=== PATIENT | male | born 1935 | race Caucasian/White ===

== ENCOUNTER 2016-11-12 08:36 | Outpatient (CLI) | payer OTHER, MEDICARE | END 2016-11-12 08:37 | disposition home or self-care (01) | DX: E07.9 Disorder of thyroid, unspecified (principal); E78.5 Hyperlipidemia, unspecified; R73.01 Impaired fasting glucose ==

== ENCOUNTER 2016-11-20 18:11 | Emergency (ER) | payer OTHER, MEDICARE ==
--- NOTE | 2016-11-20 19:09 | ED Physician Documentation ---
History of Present Illness - Stated complaint Stated Complaint: DIZZY - Chief complaint Chief Complaint: Neuro - History obtained from History obtained from: Patient, Family - History of Present Illness Timing: Other (This is a 81-year-old gentleman who had an PA with a single stent to the right coronary 10 years ago. The PA presenting complaint was chest discomfort, it was preceded 22 days earlier by a dizzy episode. He had a similar dizzy episode yesterday morning, a lightheadedness that lasted about 20 minutes and now is gone. There is no associated chest pain, chest discomfort, shortness of breath, nausea, sweats, or shortness of breath. He feels absolutely fine today.) Review of Systems Constitutional: denies: Fever, Chills Nose: denies: Rhinorrhea / runny nose, Congestion Cardiac: denies: Chest pain / pressure, Palpitations Respiratory: denies: Dyspnea, Cough GI: denies: Abdominal Pain, Nausea, Vomiting PD PAST MEDICAL HISTORY - Past Medical History Cardiovascular: PA - Present Medications Home Medications: Ambulatory Orders Medication Instructions Recorded Confirmed Albuterol Sulfate [Albuterol 2 puffs IH Q4HR PRN #1 hfa.aer.ad 09/05/14 Sulfate Hfa] Atorvastatin [Lipitor] 70 mg PO DAILY 09/05/14 09/05/14 Azithromycin [Zithromax] 250 mg PO DAILY #6 tablet 09/05/14 Levothyroxine [Synthroid] 225 mcg PO DAILY 09/05/14 09/05/14 Ondansetron [Zofran] 4 mg PO Q6H PRN #10 tablet 09/05/14 predniSONE [Deltasone] 40 mg PO DAILY 5 Days 09/05/14 - Allergies Allergies/Adverse Reactions: Allergies Allergy/AdvReac Type Severity Reaction Status Date / Time No Known Drug Allergies Allergy Verified 11/20/16 18:16 - Social History Does the pt smoke?: No Smoking Status: Never smoker Does the pt drink ETOH?: No Does the pt have substance abuse?: No PD ED PE NORMAL - Vitals Vital signs reviewed: Yes - General General: Alert and oriented X 3, No acute distress - Neck Neck: Supple, no meningeal sign, No bony TTP - Cardiac Cardiac: RRR, No murmur - Respiratory Respiratory: No respiratory distress, Clear bilaterally - Abdomen Abdomen: Non tender - Extremities Extremities: No edema, No calf tenderness / cord - Neuro Neuro: Alert and oriented X 3, Normal speech - Psych Psych: Normal mood, Normal affect Results - Vitals Vitals: Vital Signs - 24 hr 11/20/16 11/20/16 18:12 19:46 Temperature 36.5 C Heart Rate 67 62 Respiratory 16 18 Rate Blood Pressure 128/75 135/82 H O2 Saturation 98 100 Oxygen O2 Source Room air - EKG (time done) 1824 Rate: Rate (enter#) (67) Rhythm: NSR [place]: Normal Intervals: Wide QRS (IVCD) QRS: Normal Ischemia: Non specific changes. No: ST elevation c/w ischemia Computer interpretation: Agree with computer - Labs Labs: Laboratory Tests 11/20/16 11/20/16 11/20/16 19:13 19:13 19:13 WBC 7.5 RBC 4.34 L Hgb 13.9 L Hct 41.9 L MCV 96.5 H MCH 31.9 H MCHC 33.1 RDW 14.3 Plt Count 212 MPV 8.0 Neut # 4.3 Lymph # 2.2 [place] # 0.7 Eos # 0.3 Baso # 0.1 Absolute Nucleated RBC 0.01 Nucleated RBCs 0.1 Sodium 140 Potassium 4.0 Chloride 108 Carbon Dioxide 25 Anion Gap 7.0 BUN 22 H Creatinine 0.8 Estimated GFR (MDRD) 93 Glucose 84 Calcium 9.5 Total Bilirubin 0.3 AST 27 ALT 25 Alkaline Phosphatase 63 Troponin I < 0.04 Total Protein 6.8 Albumin 4.3 Globulin 2.5 Albumin/Globulin Ratio 1.7 Lipase 20 L PD MEDICAL DECISION MAKING - ED course ED course: This 81-year-old gentleman with history of PA he had an episode of dizziness yesterday, 36 hours ago, that was reminiscent of a symptom he had 22 days before prior PA. He has no anginal or anginal equivalent symptoms now or recently. His workup here is without evidence of acute ischemia. He is advised to followup for semiurgent stress testing. Departure - Departure Disposition: 01 Home, Self Care Clinical Impression: Dizziness Condition: Good Record reviewed to determine appropriate education?: Yes Instructions: ED Dizziness [facility] Comments: Followup with your primary care physician or academic coordinator tomorrow and discuss semi-urgent stress testing. Return if worse or if you develop any chest symptoms. Your blood pressure was elevated today on check in to the emergency department. This does not mean that you have hypertension, it is a common phenomenon to check into the emergency department and have elevated blood pressure. I recommend that you see your primary care physician within the week to have it rechecked when you're feeling better.
[2016-11-20 19:26] LABS: BASOPHILS # (AUTO) 0.1 10^3/uL (0.0-0.1); EOSINOPHILS # (AUTO) 0.3 10^3/uL (0.0-0.7); EOSINOPHILS % (AUTO) 3.5 %; HCT - HEMATOCRIT 41.9 % (42.0-52.0); HGB - HEMOGLOBIN 13.9 g/dL (14.0-18.0); LYMPHOCYTES # (AUTO) 2.2 10^3/uL (1.5-3.5); LYMPHOCYTES % (AUTO) 29.3 %; MEAN CORPUSCULAR HEMOGLOBIN 31.9 pg (27.0-31.0); MEAN CORPUSCULAR HGB CONC 33.1 g/dL (32.0-36.0); MEAN CORPUSCULAR VOLUME 96.5 fL (80.0-94.0); MONOCYTES # (AUTO) 0.7 10^3/uL (0.0-1.0); MONOCYTES % (AUTO) 9.1 %; NEUTROPHILS # (AUTO) 4.3 10^3/uL (1.5-6.6); NEUTROPHILS % (AUTO) 57.1 %; NUCLEATED RED BLOOD CELLS AUTO 0.1 /100WBC; RED BLOOD COUNT 4.34 10^6/uL (4.70-6.10); RED CELL DISTRIBUTION WIDTH 14.3 % (12.0-15.0); UNCORRECTED WHITE BLOOD COUNT 7.5 x10^3/uL; WHITE BLOOD COUNT 7.5 x10^3/uL (4.8-10.8)
[2016-11-20 19:42] LABS: ALBUMIN/GLOBULIN RATIO 1.7 (1.0-2.2); BILIRUBIN,TOTAL 0.3 mg/dL (0.2-1.0); CALCIUM 9.5 mg/dL (8.5-10.3); CREATININE 0.8 mg/dL (0.6-1.2); TOTAL PROTEIN 6.8 g/dL (6.7-8.2)
[2016-11-20 19:47] VITALS: BP 135/82
== END 2016-11-20 20:05 | disposition home or self-care (01) ==
LOC: ED 18:11
DX: R42 Dizziness and giddiness (principal); R03.0 Elevated blood-pressure reading, without diagnosis of hypertension; I25.2 Old myocardial infarction
CPT/HCPCS: 36415; 80053; 83690; 84484; 85025; 93005; 93010; 99283

== ENCOUNTER 2016-12-15 11:09 | Outpatient (CLI) | payer OTHER, MEDICARE | END 2016-12-15 11:10 | disposition home or self-care (01) | LOC: DI 11:09 | PROVIDERS: ATTEND Physician Assistant | DX: R42 Dizziness and giddiness (principal); I51.7 Cardiomegaly | CPT/HCPCS: 93306 ==

== ENCOUNTER 2016-12-27 17:00 | Outpatient (CLI) | payer OTHER, MEDICARE ==
--- NOTE | 2016-12-28 06:15 | Ultrasound Report ---
EXAM: CAROTID DOPPLER ULTRASOUND EXAM DATE: 12/27/2016 06:56 PM. CLINICAL HISTORY: Dizziness and giddiness. COMPARISON: None. TECHNIQUE: Real-time sonographic vascular imaging was performed by the director of admissions through the [employer] arterial system with a linear transducer utilizing color-flow, Doppler flow and spectral analysis. Multiple route sales representative static images were saved for review. FINDINGS: There is plaquing at the carotid bifurcations bilaterally, left greater than right. No significant st enosis is seen. Ectasia is seen in the mid left common carotid artery. Antegrade flow is seen in both vertebral arteries. Right: RCCA Prox: PSV 81 cm/sec. RCCA Dist: PSV 68 cm/sec, EDV 20 cm/sec. RECA: PSV 63 cm/sec. R Bulb: PSV 46 cm/sec, EDV 12 cm/sec, ICA/CCA ratio 0.67. MARYSE Prox: PSV 64 cm/sec, EDV 15 cm/sec, ICA/CCA ratio 0.94. MARYSE Mid: PSV 66 cm/sec, EDV 28 cm/sec, ICA/CCA ratio 0.97. MARYSE Dist: PSV 69 cm/sec, EDV 18 cm/sec, ICA/CCA ratio 1.01. RVA: PSV 22 cm/sec. RVA flow direction: Antegrade. Left: LCCA Prox: PSV 97 cm/sec. LCCA Dist: PSV 174 cm/sec, EDV 27 cm/sec. LECA: PSV 93 cm/sec. L Bulb: PSV 67 cm/sec, EDV 17 cm/sec, ICA/CCA ratio 0.38. LICA Prox: PSV 46 cm/sec, EDV 20 cm/sec, ICA/CCA ratio 0.26. LICA Mid: PSV 60 cm/sec, EDV 27 cm/sec, ICA/CCA ratio 0.34. LICA Dist: PSV 80 cm/sec, EDV 31 cm/sec, ICA/CCA ratio 0.45. LVA: PSV 30 cm/sec. LVA flow direction: Antegrade. Other: None. IMPRESSION: 1. Bilateral carotid plaquing with no significant stenosis. 2. Antegrade flow in both vertebral arteries. Validated velocity measurements with angiographic measurements and velocity criteria are extrapolated from diameter data as defined by the Society of Radiologists in Ultrasound Consensus Conference Radi ology 2003; 229;340-346. [facility] Referring Provider Line: [phone] SITE ID: [id number]
== END 2016-12-27 17:01 | disposition home or self-care (01) ==
LOC: DI 17:00
PROVIDERS: ATTEND Physician Assistant
DX: R42 Dizziness and giddiness (principal)
CPT/HCPCS: 93880

== ENCOUNTER 2017-01-09 14:41 | Outpatient (CLI) | payer OTHER, MEDICARE ==
[2017-01-09 17:58] LABS: BASOPHILS % (AUTO) 0.4 %; EOSINOPHILS # (AUTO) 0.3 10^3/uL (0.0-0.7); EOSINOPHILS % (AUTO) 3.6 %; HGB - HEMOGLOBIN 14.1 g/dL (14.0-18.0); LYMPHOCYTES # (AUTO) 1.3 10^3/uL (1.5-3.5); MEAN CORPUSCULAR HEMOGLOBIN 32.8 pg (27.0-31.0); MEAN CORPUSCULAR HGB CONC 33.6 g/dL (32.0-36.0); MEAN CORPUSCULAR VOLUME 97.7 fL (80.0-94.0); MEAN PLATELET VOLUME 8.5 fL (7.4-11.4); MONOCYTES % (AUTO) 10.7 %; NEUTROPHILS # (AUTO) 6.8 10^3/uL (1.5-6.6); NEUTROPHILS % (AUTO) 71.3 %; RED CELL DISTRIBUTION WIDTH 13.8 % (12.0-15.0); UNCORRECTED WHITE BLOOD COUNT 9.5 x10^3/uL; WHITE BLOOD COUNT 9.5 x10^3/uL (4.8-10.8)
[2017-01-09 18:10] LABS: ALBUMIN/GLOBULIN RATIO 1.4 (1.0-2.2); BILIRUBIN,TOTAL 0.6 mg/dL (0.2-1.0); CALCIUM 9.2 mg/dL (8.5-10.3); POTASSIUM 3.9 mmol/L (3.5-5.0); TOTAL PROTEIN 6.9 g/dL (6.7-8.2)
[2017-01-09 18:21] LABS: MONO NEG QC NEGATIVE (Negative); MONO POS QC POSITIVE (Positive)
== END 2017-01-09 14:42 | disposition home or self-care (01) ==
LOC: LAB.F 14:41
PROVIDERS: ATTEND Physician Assistant
DX: R05 Cough (principal)
CPT/HCPCS: 36415; 80053; 85025; 86308

== ENCOUNTER 2017-01-09 15:52 | Outpatient (CLI) | payer OTHER, MEDICARE ==
--- NOTE | 2017-01-10 09:01 | XRAY Report ---
TWO-VIEW CHEST: 01/09/2017 CLINICAL INDICATION: Cough. COMPARISON: 09/05/2014 FINDINGS: Frontal and lateral views of the chest demonstrate a normal cardiac silhouette. The lungs are clear. Previous interstitial opacities have resolved. No effusion or pneumothorax is present. IMPRESSION: NORMAL CHEST. JOB #: [id number] EXT JOB #:[id number]
== END 2017-01-09 15:53 | disposition home or self-care (01) ==
LOC: DI.S 15:52
PROVIDERS: ATTEND Physician Assistant
DX: R05 Cough (principal)
CPT/HCPCS: 36415; 71020; 80053; 85025; 86308

== ENCOUNTER 2018-01-28 08:00 | Outpatient (CLI) | payer OTHER, MEDICARE ==
[2018-01-28 18:06] LABS: ALBUMIN 4.3 g/dL (3.2-5.5); ALBUMIN/GLOBULIN RATIO 1.5 (1.0-2.2); ALKALINE PHOSPHATASE 67 IU/L (42-121); ALT ALANINE AMINOTRANSFERASE 28 IU/L (10-60); AST ASPARTATE AMINOTRANSFERASE 33 IU/L (10-42); BILIRUBIN,TOTAL 0.8 mg/dL (0.2-1.0); BUN - BLOOD UREA NITROGEN 18 mg/dL (6-20); CALCIUM 9.4 mg/dL (8.5-10.3); CARBON DIOXIDE - CO2 26 mmol/L (21-32); CHLORIDE 104 mmol/L (101-111); CHOL/HDL RATIO 2.7 (<5.0); CHOLESTEROL 182 mg/dL; GFR - MDRD 72 (>89); GLUCOSE 72 mg/dL (70-100); HDL CHOLESTEROL 67 mg/dL; LDL CHOLESTEROL,CALCULATED 77 mg/dL; LDL/HDL RATIO 1.1 (<3.6); SODIUM 136 mmol/L (135-145); TOTAL PROTEIN 7.2 g/dL (6.7-8.2); VLDL CHOLESTEROL 38 mg/dL
[2018-01-28 18:19] LABS: TOTAL T3 0.52 ng/mL (0.87-1.78)
[2018-01-28 18:50] LABS: THYROID STIMULATING HORMONE 94.05 uIU/mL (0.34-5.60)
[2018-01-28 18:54] LABS: FREE T4 (FREE THYROXINE) < 0.25 ng/dL (0.58-1.64)
== END 2018-01-28 08:01 | disposition home or self-care (01) ==
LOC: LAB.F 08:00
PROVIDERS: ATTEND Physician Assistant
DX: E78.5 Hyperlipidemia, unspecified (principal); I25.10 Atherosclerotic heart disease of native coronary artery without angina pectoris; E07.9 Disorder of thyroid, unspecified
CPT/HCPCS: 36415; 80053; 80061; 83721; 84439; 84443; 84480; 84481; 84482

== ENCOUNTER 2018-01-31 14:55 | Outpatient (CLI) | payer OTHER, MEDICARE | END 2018-01-31 14:56 | disposition home or self-care (01) | LOC: LAB.F 14:55 | PROVIDERS: ATTEND Physician Assistant | DX: E78.5 Hyperlipidemia, unspecified (principal); I25.10 Atherosclerotic heart disease of native coronary artery without angina pectoris; E07.9 Disorder of thyroid, unspecified | CPT/HCPCS: 36415; 84482 ==

== ENCOUNTER 2018-08-12 16:34 | Emergency (ER) | payer MEDICARE, OTHER ==
--- NOTE | 2018-08-12 17:55 | CT Report ---
Reason: fall, head injury Procedure Date: 08/12/2018 Accession Number: [id number] / [id number] Procedure: CT - Head W/O CPT Code: FULL RESULT: EXAM: CT HEAD EXAM DATE: 08/12/2018 05:28 PM. CLINICAL HISTORY: Fall, head injury. COMPARISON: None. TECHNIQUE: Multiaxial CT images were obtained from the foramen magnum to the vertex. Reformats: Sagittal and coronal. IV contrast: None. In accordance with CT protocol optimization, one or more of the following dose reduction techniques were utilized for this exam: automated exposure control, adjustment of mA and/or KV based on patient size, or use of iterative reconstructive technique. FINDINGS: Parenchyma: No intraparenchymal hemorrhage. No evidence of mass, midline shift, or CT findings of infarction. Tatum-white differentiation is distinct. Extraaxial Spaces: Normal for age. No subdural or epidural collections identified. Ventricles: Normal in size and position. Sinuses and Orbits: Imaged paranasal sinuses, orbits, and mastoids show no significant abnormality. Bones: No evidence of fracture or calvarial defect. Other: None. IMPRESSION: No acute intracranial abnormality. [facility]
--- NOTE | 2018-08-12 18:04 | ED Physician Documentation ---
PD HPI HEAD INJURY - Stated complaint Stated Complaint: GLF/HD PX/BLURRY VISION - Chief complaint Chief Complaint: Ext Problem - History obtained from History obtained from: Patient - History of Present Illness Mechanism of head injury: Fell Where head injury occurred: Other (slipped on ice and fell backward, striking occiput. [place] dazed for few moments, without LOC. Having some blurred vision few minutes, and doubled vision. Has consistent diplopia since the fall. Some occipital headache.) Timing - onset: How many hours ago (1), Today Location of injury: Back Quality of pain: Aching, Dull Associated symptoms: No: LOC, AMS, Nausea / vomiting Symptoms worsen with: Palpation Contributing factors: No: Anticoagulated, Intoxicated Similar symptoms before: Has not had sx before Recently seen: Not recently seen Review of Systems Constitutional: denies: Fever Eyes: denies: Loss of vision (has doubled vision), Photophobia Nose: denies: Rhinorrhea / runny nose, Congestion Throat: denies: Sore throat Respiratory: denies: Cough GI: denies: Nausea, Vomiting Musculoskeletal: denies: Neck pain, Back pain Neurologic: denies: Focal weakness, Numbness PD PAST MEDICAL HISTORY - Past Medical History Past Medical History: Yes Cardiovascular: High cholesterol, CT Endocrine/Autoimmune: HyPOthyroidism Other Past Medical History: cancer - Past Surgical History Past Surgical History: Yes Cardiovascular: Coronary stent - Present Medications Home Medications: Ambulatory Orders Medication Instructions Recorded Confirmed Atorvastatin [Lipitor] 80 mg PO DAILY 09/05/14 08/12/18 Levothyroxine [Synthroid] 200 mcg PO DAILY 09/05/14 08/12/18 - Allergies Allergies/Adverse Reactions: Allergies Allergy/AdvReac Type Severity Reaction Status Date / Time No Known Drug Allergies Allergy Verified 08/12/18 16:43 - Social History Does the pt smoke?: No Smoking Status: Never smoker Does the pt drink ETOH?: No Does the pt have substance abuse?: No - Immunizations Immunizations are current?: Yes - POLST Patient has POLST: No PD ED PE NORMAL - Vitals Vital signs reviewed: Yes - General General: Alert and oriented X 3, No acute distress, Well developed/nourished - HEENT HEENT: PERRL (normal size and both reactive. ), EOMI (the eyes appears conjugate and stay uniform with eye movements to sides and up/down. He says the doubling does not really correct except with looking downward. No pain with eye movements. No tenderness around the eye. Fundal exam appears normal. ), Pharynx benign, Dentition benign, Other (tender occipital area) - Neck Neck: Supple, no meningeal sign, No adenopathy, No bruit - Cardiac Cardiac: RRR, No murmur - Respiratory Respiratory: Clear bilaterally - Derm Derm: Normal color, Warm and dry - Neuro Neuro: Alert and oriented X 3, long term care pharmacist 2-12 intact, No motor deficit, No sensory deficit, Normal speech, Other Eye Opening: Spontaneous Motor: Obeys Commands Verbal: Oriented GCS Score: 15 Results - Vitals Vitals: Vital Signs - 24 hr 08/12/18 08/12/18 16:41 18:45 Temperature 36.2 C L 36.3 C L Heart Rate 85 86 Respiratory 14 16 Rate Blood Pressure 133/80 H 128/78 O2 Saturation 99 99 Oxygen O2 Source Room air - Rads (name of study) head cT Radiology: Prelim report reviewed (no bleeding nor acute traumatic injury. ), EMP read contemporaneously, See rad report PD MEDICAL DECISION MAKING - ED course Complexity details: considered differential (diplopia after hitting back of head. Eyes appear okay and monocular vision is good in each eye. The diplopia corrects best with downward gaze and stays about the same with side to side and no pain with eye movement. Does not sound like eye muscle per se and not orbital fracture without pain, and so assume concussive effect centrally. Reference UpToDate.), d/w patient Departure - Departure Disposition: 01 Home, Self Care Clinical Impression: Diplopia Fall due to ice or snow Qualifiers: Encounter type: initial encounter Qualified Code(s): W00.9XXA - Unspecified fall due to ice and snow, initial encounter Mild concussion Qualifiers: Encounter type: initial encounter Loss of consciousness presence/duration: without LOC Qualified Code(s): S06.0X0A - Concussion without loss of consciousness, initial encounter Condition: Stable Record reviewed to determine appropriate education?: Yes Instructions: ED Concussion, ED Double Vision Follow-Up: [facility] [Primary Care Provider] - Leonid Varner MD [Provider Admit Priv/Credential] - Comments: Your double vision does not look to be injury to the eye itself. I presume it's related to concussion, with hitting the back of your head and should resolve in the next day or 2[address] does not show any bleeding in the brain compartment. Tylenol or ibuprofen if needed for pains. Rest for 1-2 days. Recheck with an community service specialist if not better in the next couple of days. return to the ER sooner if more concussive symptoms. Forms: Activity restrictions Discharge Date/Time: 08/12/18 18:45
[2018-08-12] MEDS ORDERED: IBUPROFEN 600 MG TABLET PO STA (18:25)
[2018-08-12] MEDS ORDERED: ACETAMINOPHEN 325 MG TABLET PO STA (18:25)
[2018-08-12 19:06] VITALS: BP 128/78
== END 2018-08-12 18:45 | disposition home or self-care (01) ==
LOC: ED 16:34
DX: H53.2 Diplopia (principal); S06.0X0A Concussion without loss of consciousness, initial encounter; W00.0XXA Fall on same level due to ice and snow, initial encounter; I25.2 Old myocardial infarction; E78.00 Pure hypercholesterolemia, unspecified; E03.9 Hypothyroidism, unspecified; Z95.5 Presence of coronary angioplasty implant and graft
CPT/HCPCS: 70450; 99283; A9270